=== PATIENT | female | born 2000 | race Caucasian/White ===

== ENCOUNTER 2024-06-24 22:13 | Emergency (ER) | payer MEDICAID ==
--- NOTE | 2024-06-24 22:27 | ERPHSYRPT ---
- History of Present Illness Time Seen by Provider: 06/24/24 22:26 Source: patient Exam Limitations: no limitations Physician History: This is a 23-year-old white female patient who presents to the emergency department to be tested for sexually transmitted infection. She arrives by private vehicle. She is asymptomatic. She had sexual intercourse with an individual who supposedly has an STI. This patient today states the type of infection that individual may have is unknown. She has no pain. She has no dysuria. She has no vaginal discharge. Patient's last menstrual period was 05/16/2024 Timing/Duration: today Activites at Onset: sexual activity Quality: other (Asymptomatic) Onset Location: other (Asymptomatic) Pain Radiation: other (No pain. Asymptomatic) Severity of Pain-Max: none Severity of Pain-Current: none Sexual intercourse history: unprotected intercourse Modifying Factors: Improves With: nothing Associated Symptoms: denies symptoms Allergies/Adverse Reactions: grape flavor Allergy (Verified 06/24/24 22:23) Travel Risk - International Travel Have you traveled outside of the country in past 3 weeks: No - Emerging Infectious Disease Are you exhibiting symptoms associated with any current EIDs: No - Review of Systems Constitutional: No Symptoms Eyes: No Symptoms Ears, Nose, & Throat: No Symptoms Respiratory: No Symptoms Cardiac: No Symptoms Abdominal/Gastrointestinal: No Symptoms Genitourinary Symptoms: No Symptoms Musculoskeletal: No Symptoms Skin: No Symptoms Neurological: No Symptoms Psychological: No Symptoms Endocrine: No Symptoms Hematologic/Lymphatic: No Symptoms Immunological/Allergic: No Symptoms All Other Systems: Reviewed and Negative - Past Medical History Pertinent Past Medical History: No - Nursing Vital Signs Nursing Vital Signs: Initial Vital Signs Pulse Rate 90 06/24/24 22:23 Blood Pressure 130/88 06/24/24 22:23 O2 Sat by Pulse Oximetry 100 06/24/24 22:23 Pain Scale Pain Intensity 0 - Physical Exam General Appearance: no apparent distress, alert, anxiety Eye Exam: PERRL/EOMI, eyes nml inspection Ears, Nose, Throat Exam: normal ENT inspection, moist mucous membranes Neck Exam: normal inspection, non-tender, supple, full range of motion Respiratory Exam: airway intact, No chest tenderness, No respiratory distress Gastrointestinal/Abdomen Exam: No tenderness Pelvic Exam: not done Rectal Exam: not done Back Exam: normal inspection, normal range of motion, No CVA tenderness, No vertebral tenderness Extremity Exam: normal inspection, normal range of motion, pelvis stable Neurologic Exam: alert, oriented x 3, cooperative, ground hand II-XII nml as tested, nml cerebellar function, nml station & gait, sensation nml Skin Exam: normal color, warm, dry Lymphatic Exam: No adenopathy SpO2 Interpretation: normal O2 Delivery: Room Air - Course Nursing assessment & vital signs reviewed: Yes Ordered Tests: Active Orders 24 hr Category Date Time Status CULTURE,URINE Stat Lab 06/24/24 22:35 Received HCG QUALITATIVE, URINE Stat Lab 06/24/24 22:35 Completed UA W/RFX UR CULTURE Stat Lab 06/24/24 22:35 Completed Medication Summary Discontinued Medications Generic Name Dose Route Start Last Admin Trade Name Freq PRN Reason Stop Dose Admin Ceftriaxone Sodium 1,000 mg 06/24/24 23:57 06/25/24 00:19 Ceftriaxone Sodium 1000 Mg Inj Vial IM 06/24/24 23:58 1,000 mg STAT ONE Administration Ceftriaxone Sodium Confirm 06/25/24 00:18 Ceftriaxone Sodium 1000 Mg Inj Vial Administered 06/25/24 00:19 Dose 1,000 mg .ROUTE .STK-MED ONE Doxycycline Hyclate 100 mg 06/24/24 23:57 06/25/24 00:19 Doxycycline Hyclate 100 Mg Tablet PO 06/24/24 23:58 100 mg STAT ONE Administration Doxycycline Hyclate Confirm 06/25/24 00:18 Doxycycline Hyclate 100 Mg Tablet Administered 06/25/24 00:19 Dose 100 mg .ROUTE .STK-MED ONE Lab/Rad Data: Laboratory Results 06/24/24 06/24/24 06/24/24 Range/Units 22:35 22:35 22:35 Urine Color Yellow (Yellow) Urine Appearance Cloudy A (Clear) Urine pH 5.5 (4.6-8.0) Ur Specific [place] 1.020 (1.005-1.030) Urine Protein Trace A (Negative) Urine Glucose (UA) Negative (Negative) mg/dL Urine Ketones Trace A (Negative) Urine Blood Large A (Negative) Urine Nitrite Negative (Negative) Urine Bilirubin Negative (Negative) Urine Urobilinogen 1.0 A (0.2) mg/dL Ur Leukocyte Esterase Trace A (Negative) U Hyaline Cast (Auto) 3-5 A (0-2) /LPF Urine Microscopic RBC 6-10 A (0-5) /HPF Urine Microscopic WBC 21-50 A (0-5) /HPF Ur Epithelial Cells Few (None Seen) /HPF Urine Bacteria Moderate A (None Seen) /HPF Urine Culture Reflexed YES (NO) Urine HCG, Qual NEGATIVE (NEGATIVE) Chlamydia DNA Probe NOT DETECTED (NEGATIVE) N.gonorrhoeae DNA Probe NOT DETECTED (NEGATIVE) - Progress Progress: unchanged Air Movement: good Progress Note: 06/24/24 22:49 Medical decision making and the assignment of low complexity to this patient's medical issue today is based on review of the patient's past medical history, review of the patient's medication list, reviewed patient drug allergy list, history present illness and physical findings on examination. The workup in this patient includes urinalysis, urine test, urine chlamydia and urine gonorrhea test. Differential diagnosis includes but is not limited to urinary tract infection, , gonorrhea infection, chlamydial infection, no infection 06/25/24 00:41 I interpreted the patient's laboratory data results. Based on the laboratory data results, the patient does have a significant urinary tract infection but no evidence of chlamydia or gonorrhea infections. However, we will treat her urinary tract infections with the same medication that would cover uncomplicated gonorrhea and chlamydia which includes a Rocephin injection and doxycycline for 7 days. Blood Culture(s) Obtained: No Antibiotics given: Yes Counseled pt/family regarding: lab results, diagnosis, need for follow-up Medical Desision Making - Diagnostic Testing Diagnostic test were ordered, analyzed, and reviewed by me: Yes - Risk of complications The pt has a mod risk of morbidity or mortality based on: Need for prescription drug management - Departure Departure Disposition: Home Clinical Impression: Urinary tract infection Condition: Stable Critical Care Time: No Additional Instructions: Drink plenty of fluids. Take your antibiotics as prescribed. Call your primary care provider today, to make arranges for follow-up appointment to be seen in the next 5 to 7 days. Use Tylenol and ibuprofen for pain and fever control. Prescriptions: Doxycycline Hyclate 100 mg [Vibramycin 100 MG] 100 mg PO BID #14 tab
[2024-06-24 22:39] VITALS: RESP 18; TEMP 95.9
[2024-06-24 22:40] LABS: HCG URINE TEST NEGATIVE (NEGATIVE)
[2024-06-24 22:44] LABS: Appearance Cloudy (Clear); Bacteria Moderate /HPF (None Seen); Bilirubin Negative (Negative); Blood Large (Negative); Epithelial Cells Few /HPF (None Seen); Glucose, Urine Negative (Negative); Ketones Trace (Negative); Leukocyte Esterase Trace (Negative); Nitrite Negative (Negative); Ph 5.5 (4.6-8.0); Protein,Urine Dip Trace (Negative); WBC 21-50 /HPF (0-5)
[2024-06-25] MEDS ORDERED: Rocephin 1000 MG INJ ONE (00:18)
[2024-06-25] MEDS ORDERED: Vibramycin 100 MG ONE (00:18)
[2024-06-25] MEDS: Rocephin 1000 MG INJ IM ONE (00:19)
[2024-06-25] MEDS: Vibramycin 100 MG PO ONE (00:19)
[2024-06-25 00:24] LABS: CHLAMYDIA DNA NOT DETECTED (NEGATIVE); GC DNA Probe NOT DETECTED (NEGATIVE)
[2024-06-25 00:56] VITALS: BP 121/70; PULSE 85; O2SAT 100
== END 2024-06-25 00:58 | disposition home or self-care (01) ==
LOC: ED 22:13
DX: Z20.2 Contact with and (suspected) exposure to infections with a predominantly sexual mode of transmission (principal); N39.0 Urinary tract infection, site not specified
CPT/HCPCS: 81001; 81025; 87086; 87491; 87591; 96372; 99283; J0696; A9270-GY